=== PATIENT | female | born 1955 | race Caucasian/White ===

== ENCOUNTER 2020-10-31 12:04 | Inpatient (IN) | payer OTHER ==
[~2020-10-31] VITALS: Ht 160 cm; Wt 73.9 kg
[2020-10-31 13:38] LABS: HEMOGLOBIN 13.4 gm/dl (12.3-15.3); RED BLOOD COUNT 5.46 M/UL (4.00-5.10); WHITE BLOOD COUNT 5.9 K/UL (4.5-11.0)
[2020-10-31 13:59] LABS: BUN/CREATININE RATIO 14 (0-10)
[2020-10-31] MEDS ORDERED: XELJANZ XR PO (15:04)
[2020-10-31] MEDS ORDERED: PREDNISONE 10 M10 MG PO (15:05)
[2020-10-31] MEDS ORDERED: DAILY VALUE1 EACH PO (15:05)
[2020-10-31] MEDS ORDERED: VITAMIN D325 MCG PO (15:06)
[2020-10-31] MEDS ORDERED: CALCIUM500 MG PO (15:06)
[2020-10-31] MEDS ORDERED: IBUPROFEN400 MG PO (15:07)
[2020-11-01 05:20] LABS: HEMOGLOBIN 11.7 gm/dl (12.3-15.3)
[2020-11-01 05:23] LABS: RED BLOOD COUNT 4.82 M/UL (4.00-5.10); WHITE BLOOD COUNT 3.6 K/UL (4.5-11.0)
[2020-11-01 05:42] LABS: BUN/CREATININE RATIO 19 (0-10)
[2020-11-02 17:09] LABS: HEMOGLOBIN 12.4 gm/dl (12.3-15.3); RED BLOOD COUNT 5.09 M/UL (4.00-5.10)
[2020-11-02 17:10] LABS: WHITE BLOOD COUNT 6.8 K/UL (4.5-11.0)
[2020-11-02 17:36] LABS: BUN/CREATININE RATIO 24 (0-10)
[2020-11-04 03:45] LABS: HEMOGLOBIN 11.8 gm/dl (12.3-15.3); RED BLOOD COUNT 4.89 M/UL (4.00-5.10); WHITE BLOOD COUNT 5.9 K/UL (4.5-11.0)
[2020-11-04 04:02] LABS: BUN/CREATININE RATIO 27 (0-10)
[2020-11-05 05:55] LABS: HEMOGLOBIN 12.2 gm/dl (12.3-15.3); RED BLOOD COUNT 5.05 M/UL (4.00-5.10); WHITE BLOOD COUNT 7.1 K/UL (4.5-11.0)
[2020-11-05 06:15] LABS: BUN/CREATININE RATIO 27 (0-10)
[2020-11-07 07:12] LABS: HEMOGLOBIN 13.4 gm/dl (12.3-15.3)
[2020-11-07 07:16] LABS: RED BLOOD COUNT 5.57 M/UL (4.00-5.10); WHITE BLOOD COUNT 9.9 K/UL (4.5-11.0)
[2020-11-07 07:32] LABS: BUN/CREATININE RATIO 24 (0-10)
[2020-11-07] MEDS ORDERED: DEXAMETHASONE 44 MG PO (14:14)
[2020-11-07] MEDS ORDERED: COMBIVENT RESPIM4 GM INH (14:14)
[2020-11-07] MEDS ORDERED: ASPIRIN EC81 MG PO (14:17)
== END 2020-11-07 17:47 | disposition home or self-care (01) | DRG 177 ==
LOC: ER1 12:04 → M/S 14:43 → CDU 14:43 → M/S 11-02 02:00
PROVIDERS: Emergency Medicine; ADMIT Internal Medicine Infectious Disease
PROC: 3E0333Z Introduction of Anti-inflammatory into Peripheral Vein, Percutaneous Approach (ICD-10-PCS; 2020-10-31)
PROC: 8E0ZXY6 Isolation (ICD-10-PCS; 2020-10-31)
PROC: XW13325 Transfusion of Convalescent Plasma (Nonautologous) into Peripheral Vein, Percutaneous Approach, New Technology Group 5 (ICD-10-PCS; 2020-11-01)
PROC: XW033E5 Introduction of Remdesivir Anti-infective into Peripheral Vein, Percutaneous Approach, New Technology Group 5 (ICD-10-PCS; principal; 2020-11-02)
DX: U07.1 COVID-19 (principal); J12.82 Pneumonia due to coronavirus disease 2019; J96.21 Acute and chronic respiratory failure with hypoxia; E11.65 Type 2 diabetes mellitus with hyperglycemia; T38.0X5A Adverse effect of glucocorticoids and synthetic analogues, initial encounter; M06.9 Rheumatoid arthritis, unspecified; Z79.82 Long term (current) use of aspirin; Z98.890 Other specified postprocedural states; Z88.0 Allergy status to penicillin; Z88.2 Allergy status to sulfonamides; Z82.49 Family history of ischemic heart disease and other diseases of the circulatory system; Z83.3 Family history of diabetes mellitus; Z79.899 Other long term (current) drug therapy; Z79.52 Long term (current) use of systemic steroids
CPT/HCPCS: 36415; 36600; 71045; 80053; 82550; 82553; 82728; 82803; 82962; 83036; 83615; 83874; 83880; 84484; 85025; 85379; 86140; 86900; 86901; 86927; 94640; 94664; 94760; 96374; 99285; J1100; J1650; J7030